=== PATIENT | female | born 1930 | race Caucasian/White ===

== ENCOUNTER → 2017-08-03 | Outpatient (CLI) | payer MEDICARE, OTHER ==
[~2017-08-03] MED LIST: ACET500 PO; CARV3.125 PO; CENTRUM SILVER1 EAC2 PO; CHOL10002 PO; Cephalexin500 MG PO; FISH OIL PO; Fish Oil 10001000 MG; Ibuprofen Ib200 MG PO; LISINOPRIL PO; MULVITMINF PO; NAPR500 PO; PRAVASTATIN PO; Pravachol40 MG PO; TRIHYD253A PO; Zestril40 MG
[2017-08-03 15:26] LABS: BASOPHILS ABSOLUTE AUTO 0.02 K/mm3 (0.00-0.23); BASOPHILS PERCENT AUTO 0 % (0-2); EOSINOPHILS ABSOLUTE AUTO 0.25 K/mm3 (0.00-0.68); EOSINOPHILS PERCENT AUTO 3 % (0-6); Hematocrit 35.6 % (33.0-51.0); Hemoglobin 12.7 g/dL (11.5-16.0); IMMATURE GRAN ABSOLUTE AUTO 0.02 K/mm3 (0.00-0.10); IMMATURE GRAN PERCENT AUTO 0 % (0-1); LYMPHOCYTES ABSOLUTE AUTO 1.76 K/mm3 (0.84-5.20); LYMPHOCYTES PERCENT AUTO 23 % (21-46); MONOCYTES ABSOLUTE AUTO 0.66 K/mm3 (0.16-1.47); MONOCYTES PERCENT AUTO 9 % (4-13); Mean Corpuscular HGB 32.2 pg (26.0-34.0); Mean Corpuscular HGB Conc 35.7 g/dL (31.5-36.5); Mean Corpuscular Volume 90 fL (80-100); Mean Platelet Volume 9.6 fL (9.1-12.4); NEUTROPHILS ABSOLUTE AUTO 4.95 K/mm3 (1.96-9.15); NEUTROPHILS PERCENT AUTO 65 % (41-73); Platelet Count 229 K/mm3 (150-400); RDW Coefficient Variation 12.2 % (11.7-14.2); RDW Standard Deviation 40.1 fL (35.1-46.3); Red Blood Cell Count 3.94 M/mm3 (3.80-5.20); White Blood Cell Count 7.66 K/mm3 (4.00-11.30)
[2017-08-03 15:39] LABS: Albumin, Blood 3.6 g/dL (3.4-5.0); Albumin/Globulin Ratio 1.1 (0.8-1.8); Bilirubin, Total 0.5 mg/dL (0.1-1.0); Bun/Creatinine Ratio 20.8 (12.0-20.0); Calcium, Blood 10.7 mg/dL (8.5-10.1); Creatinine, Blood 0.96 mg/dL (0.40-1.00); Globulin, Blood 3.4 g/dL (2.2-4.0); Potassium, Blood 4.1 mmol/L (3.5-5.5)
== END | disposition home or self-care (01) ==
LOC: LAB EV 15:20
PROVIDERS: Physician Assistant Surgical
DX: R10.13 Epigastric pain (principal)
CPT/HCPCS: 80053; 83690; 85025

== ENCOUNTER → 2018-02-17 | Outpatient (CLI) | payer MEDICARE, OTHER ==
[~2018-02-17] MED LIST changes: -Cephalexin500 MG PO
== END | disposition home or self-care (01) ==
LOC: LAB SHORT 08:18 → PLD 08:18
DX: D22.39 Melanocytic nevi of other parts of face (principal)
CPT/HCPCS: 88305

== ENCOUNTER 2019-05-14 16:15 | Inpatient (IN) | payer MEDICARE, OTHER ==
[~2019-05-14] VITALS: Ht 160 cm; Wt 67.0 kg
[~2019-05-14 16:15] MED LIST changes: -CENTRUM SILVER1 EAC2 PO; +Cephalexin500 MG PO; +Dyazide 37.5-21 EACH PO; -TRIHYD253A PO; -Zestril40 MG; +Zestril40 MG PO
[2019-05-14 17:53] LABS: BASOPHILS ABSOLUTE AUTO 0.02 K/mm3 (0.00-0.23); BASOPHILS PERCENT AUTO 0 % (0-2); EOSINOPHILS ABSOLUTE AUTO 0.23 K/mm3 (0.00-0.68); EOSINOPHILS PERCENT AUTO 2 % (0-6); Hematocrit 35.5 % (33.0-51.0); Hemoglobin 11.6 g/dL (11.5-16.0); IMMATURE GRAN ABSOLUTE AUTO 0.03 K/mm3 (0.00-0.10); IMMATURE GRAN PERCENT AUTO 0 % (0-1); LYMPHOCYTES ABSOLUTE AUTO 1.67 K/mm3 (0.84-5.20); LYMPHOCYTES PERCENT AUTO 16 % (21-46); MONOCYTES ABSOLUTE AUTO 0.69 K/mm3 (0.16-1.47); MONOCYTES PERCENT AUTO 7 % (4-13); Mean Corpuscular HGB Conc 32.7 g/dL (31.5-36.5); Mean Corpuscular Volume 95 fL (80-100); Mean Platelet Volume 9.6 fL (9.1-12.4); NEUTROPHILS ABSOLUTE AUTO 7.95 K/mm3 (1.96-9.15); NEUTROPHILS PERCENT AUTO 75 % (41-73); Platelet Count 270 K/mm3 (150-400); RDW Coefficient Variation 13.6 % (11.7-14.2); RDW Standard Deviation 47.1 fL (35.1-46.3); Red Blood Cell Count 3.74 M/mm3 (3.80-5.20); White Blood Cell Count 10.59 K/mm3 (4.00-11.30)
[2019-05-14 18:13] LABS: Alanine Aminotransfer (ALT/SGP 38 U/L (12-78); Albumin, Blood 3.5 g/dL (3.4-5.0); Albumin/Globulin Ratio 0.9 (0.8-1.8); Alk Phos 74 U/L (50-136); Anion Gap 8 mmol/L (6-16); Aspartate Aminotrans (AST/SGOT 21 U/L (12-37); Bilirubin, Total 0.4 mg/dL (0.1-1.0); Blood Urea Nitrogen 31 mg/dL (8-24); Bun/Creatinine Ratio 34.2 (12.0-20.0); CO2, Blood 21 mmol/L (21-32); Calcium, Blood 9.6 mg/dL (8.5-10.1); Chloride, Blood 106 mmol/L (98-108); Creatinine, Blood 0.91 mg/dL (0.40-1.00); Globulin, Blood 3.8 g/dL (2.2-4.0); Glomerular Filtration Rate >60 (60-); Glucose, Blood 120 mg/dL (70-99); Potassium, Blood 4.5 mmol/L (3.5-5.5); Sodium, Blood 135 mmol/L (136-145); Total Protein, Blood 7.3 g/dL (6.4-8.2)
[2019-05-14] MEDS ORDERED: THERA1 EACH PO (18:36)
[2019-05-14] MEDS ORDERED: GLUCOSAMINE-CHONDROI PO (18:38)
[2019-05-14 19:27] LABS: International Normalized Ratio 0.98; Prothrombin Time Results 10.4 Sec (9.7-11.5)
--- NOTE | 2019-05-15 07:21 | NUR ---
SHIFT SUMMARY HAS RESTED WELL SINCE ADMISSION. PAIN MANAGED WITH PRN PO PAIN MEDS. STATES THAT SHE IS LOOOKING FORWARD TO GETTING BACK HOME SOON POSSIBLE SINCE SHE IS HOSTING SHIRLEY THIS YEAR. SAFETY MEASURES IN PLACE. WILL GIVE HAND OFF TO ONCOMING SHIFT USING SBAR.
--- NOTE | 2019-05-15 11:40 | NUR ---
DR. SOTO IN TO SEE PT, PLAN IS FOR SURGERY TODAY, MID-AFTERNOON.
--- NOTE | 2019-05-15 15:57 | NUR ---
PT TO OR AT ABOUT 1500
--- NOTE | 2019-05-15 16:57 | NUR ---
Lungs clear T/O to Auscultation. History, Chart, Medications and Allergies reviewed before start of procedure.Patient confirms NPO status and agrees with scheduled surgery. THE PATIENT WAS BROUGHT DOWN FROM THE FLOOR FOR HER HIP REVISION.
[2019-05-16 03:46] LABS: BASOPHILS ABSOLUTE AUTO 0.01 K/mm3 (0.00-0.23); BASOPHILS PERCENT AUTO 0 % (0-2); EOSINOPHILS PERCENT AUTO 0 % (0-6); Hematocrit 26.6 % (33.0-51.0); Hemoglobin 8.8 g/dL (11.5-16.0); IMMATURE GRAN ABSOLUTE AUTO 0.02 K/mm3 (0.00-0.10); IMMATURE GRAN PERCENT AUTO 0 % (0-1); LYMPHOCYTES ABSOLUTE AUTO 1.04 K/mm3 (0.84-5.20); LYMPHOCYTES PERCENT AUTO 9 % (21-46); MONOCYTES ABSOLUTE AUTO 0.51 K/mm3 (0.16-1.47); MONOCYTES PERCENT AUTO 5 % (4-13); Mean Corpuscular HGB 31.2 pg (26.0-34.0); Mean Corpuscular HGB Conc 33.1 g/dL (31.5-36.5); Mean Corpuscular Volume 94 fL (80-100); Mean Platelet Volume 9.9 fL (9.1-12.4); NEUTROPHILS ABSOLUTE AUTO 9.68 K/mm3 (1.96-9.15); NEUTROPHILS PERCENT AUTO 86 % (41-73); Platelet Count 216 K/mm3 (150-400); RDW Coefficient Variation 13.9 % (11.7-14.2); RDW Standard Deviation 47.8 fL (35.1-46.3); Red Blood Cell Count 2.82 M/mm3 (3.80-5.20); White Blood Cell Count 11.26 K/mm3 (4.00-11.30)
--- NOTE | 2019-05-16 06:33 | NUR ---
SHIFT SUMMARY PT POD#1 LEFT HIP ORIF. AAOX4. DISCOMFORT CONTROLLED WITH 1 ULTRAM THIS AM, NO NAUSEA/EMESIS. LEFT HIP AQUACEL C/D/I. PPP, DENIES N/T BLE, MOVES TOES WELL. PT UP TO RESTROOM THIS SHIFT, TOLERATED WELL 1 PERSON MODERATE ASSIST WITH FWW. GOOD PO INTAKE + OUTPUT. PT RESTING WELL THIS AM. DR AMANDA IN ROOM. CALL LIGHT IN REACH.
--- NOTE | 2019-05-16 14:28 | NUR ---
DR SOTO HERE TO SEE PT, FAMILY PRESENT.
--- NOTE | 2019-05-16 16:59 | NUR ---
SHIFT SUMMARY PT EATING AND DRINKING. PT VOIDING, PASSING GAS. PT BEEN UP TO CHAIR TODAY. PT WORKED WITH THERAPY. FAMILY IN/OUT OF ROOM. PT BEEN ASSISTED WITH ADL'S PRN. PT USING [employer] APPR.
--- NOTE | 2019-05-17 04:03 | NUR ---
SHIFT SUMMARY PT POD#2. AAOX4. DISCOMFORT MINIMIZED WITH ULTRAM X1 THIS SHIFT. NO NAUSEA/EMESIS. AQUACEL TO LEFT HIP C/D/I. PPP, DENIES ACUTE CHANGE IN N/T, MOVES TOES WELL BLE. PT UP TO RESTROOM 1 PERSON MINIMAL ASSIST WITH FWW, TOLERATES WEIGHTBEARING STATUS WELL. PT AWOKE THIS AM WITH ABD DISCOMFORT, MINIMIZED WITH CRACKERS. GOOD PO INTAKE + OUTPUT. PT UP TO RESTROOM + BACK TO BED AT THIS TIME, NADN, WITH CALL LIGHT IN REACH. REPORT TO JAY RUBIN TO ASSUME CARE.
--- NOTE | 2019-05-17 06:04 | NUR ---
DR ANGLIN NOTIFIED OF GI PAINS IN MID EPIGASTRIC AREA. MAALOX ORDERED AND GIVEN. AWAITING RESULTS.
[2019-05-17 07:18] LABS: BASOPHILS ABSOLUTE AUTO 0.01 K/mm3 (0.00-0.23); BASOPHILS PERCENT AUTO 0 % (0-2); EOSINOPHILS ABSOLUTE AUTO 0.01 K/mm3 (0.00-0.68); EOSINOPHILS PERCENT AUTO 0 % (0-6); Hematocrit 27.4 % (33.0-51.0); Hemoglobin 8.9 g/dL (11.5-16.0); IMMATURE GRAN ABSOLUTE AUTO 0.02 K/mm3 (0.00-0.10); IMMATURE GRAN PERCENT AUTO 0 % (0-1); LYMPHOCYTES ABSOLUTE AUTO 1.15 K/mm3 (0.84-5.20); LYMPHOCYTES PERCENT AUTO 13 % (21-46); MONOCYTES ABSOLUTE AUTO 0.28 K/mm3 (0.16-1.47); MONOCYTES PERCENT AUTO 3 % (4-13); Mean Corpuscular HGB 30.9 pg (26.0-34.0); Mean Corpuscular HGB Conc 32.5 g/dL (31.5-36.5); Mean Corpuscular Volume 95 fL (80-100); Mean Platelet Volume 9.8 fL (9.1-12.4); NEUTROPHILS ABSOLUTE AUTO 7.67 K/mm3 (1.96-9.15); NEUTROPHILS PERCENT AUTO 84 % (41-73); Platelet Count 236 K/mm3 (150-400); RDW Coefficient Variation 14.1 % (11.7-14.2); RDW Standard Deviation 48.8 fL (35.1-46.3); Red Blood Cell Count 2.88 M/mm3 (3.80-5.20); White Blood Cell Count 9.14 K/mm3 (4.00-11.30)
[2019-05-17 07:37] LABS: Albumin, Blood 2.8 g/dL (3.4-5.0); Albumin/Globulin Ratio 0.9 (0.8-1.8); Bilirubin, Total 0.4 mg/dL (0.1-1.0); Bun/Creatinine Ratio 37.3 (12.0-20.0); Calcium, Blood 8.9 mg/dL (8.5-10.1); Creatinine, Blood 1.1 mg/dL (0.40-1.00); Globulin, Blood 3.2 g/dL (2.2-4.0); Potassium, Blood 4.6 mmol/L (3.5-5.5)
--- NOTE | 2019-05-17 08:11 | NUR ---
PT RECENTLY TO IMAGING BY CART.
--- NOTE | 2019-05-17 11:19 | NUR ---
DR SOTO HERE TO SEE PT, DISCUSSED PT'S STATUS.
--- NOTE | 2019-05-17 12:35 | NUR ---
DR AMANDA CALLED FOR UPDATE, DISCUSSED PT'S STATUS.
--- NOTE | 2019-05-17 12:47 | NUR ---
PT SLEEPING, RESP E/U.
--- NOTE | 2019-05-17 13:06 | NUR ---
IVF INCREASED PER ORDER.
--- NOTE | 2019-05-17 14:26 | NUR ---
PT REPORTS CONT TO BE TENDER IN ABD, BUT THAT SHE FEELS MUCH BETTER AND HAS NO NAUSEA AT THIS TIME.
--- NOTE | 2019-05-17 15:54 | NUR ---
PT TO IMAGING RECENTLY.
--- NOTE | 2019-05-17 17:49 | NUR ---
DR AMANDA BEEN TO SEE PT. DR AMANDA DISCUSSED PT'S STATUS WITH DR LOU. DR AMANDA PLACED ORDERS. NGT TO L NARES WITH ASSIST FROM MANAGER SOURCING. PT TOLERATED WELL. IMAGING ORDERED TO CONFIRM PLACEMENT.
--- NOTE | 2019-05-17 18:48 | NUR ---
NGT REPORTED TO BE IN CORRECT PLACEMENT, NGT TO LIS IN PLACE.
--- NOTE | 2019-05-17 19:33 | NUR ---
SHIFT SUMMARY PT BEEN NPO. PT BEEN ASSISTED WITH ADL'S PRN. PT WAS UP TO CHAIR THIS AM. PT REPORTS MORE COMFORTABLE IN BED. PT BEEN MED PRN FOR PAIN AND NAUSEA. DR AMANDA BEEN IN A COUPLE TIMES TO SEE PT AND ALSO CHECKING PT'S STATUS BY PHONE. DR AMANDA SPOKE WITH DR LOU REGARDING PT THIS EVENING. PT HAS IVF IN ONE IV AND THE PROTONIX DRIP IN ANOTHER IV. HS RN BEEN GIVEN BEDSIDE REPORT INCLUDING Q2 HOUR VS.
[2019-05-18 05:36] LABS: Hematocrit 25.5 % (33.0-51.0); Hemoglobin 8.7 g/dL (11.5-16.0); Mean Corpuscular HGB 31.3 pg (26.0-34.0); Mean Corpuscular HGB Conc 34.1 g/dL (31.5-36.5); Platelet Count 209 K/mm3 (150-400); RDW Coefficient Variation 14.3 % (11.7-14.2); RDW Standard Deviation 48.3 fL (35.1-46.3); Red Blood Cell Count 2.78 M/mm3 (3.80-5.20); White Blood Cell Count 14.65 K/mm3 (4.00-11.30)
[2019-05-18 05:38] LABS: Mean Corpuscular Volume 92 fL (80-100)
[2019-05-18 05:53] LABS: Bun/Creatinine Ratio 31.5 (12.0-20.0); Calcium, Blood 8.3 mg/dL (8.5-10.1); Creatinine, Blood 1.3 mg/dL (0.40-1.00)
[2019-05-18 05:54] LABS: BAND PERCENT MAN 22 % (0-8); BASOPHILS PERCENT MAN 0 % (0-2); EOSINOPHILS PERCENT MAN 0 % (0-6); LYMPHOCYTES ABSOLUTE MAN 1.75 K/mm3 (0.84-5.20); LYMPHOCYTES PERCENT MAN 12 % (21-46); METAMYELOCYTE ABSOLUTE MAN 0.29 K/mm3 (0.00-0.00); METAMYELOCYTE PERCENT MAN 2 % (0-0); MONOCYTES ABSOLUTE MAN 1.02 K/mm3 (0.16-1.47); MONOCYTES PERCENT MAN 7 % (4-13); NEUTROPHILS ABSOLUTE MAN 11.57 K/mm3 (1.96-9.15); SEG NEUTROPHILS PERCENT MAN 57 % (41-73); TOTAL CELLS COUNTED 100
--- NOTE | 2019-05-18 06:29 | NUR ---
SHIFT SUMMARY PT RESTED WELL T/O NIGHT. AAOX4. NPO. POD#2 LEFT HIP REPAIR. DISCOMFORT CONTROLLED WITH 25mcg FENTANYL X1 THIS SHIFT. NO NAUSEA/EMESIS. AQUACEL TO LEFT HIP C/D/I. NGT TO LIS, WITH 100cc LIGHT GREEN OUT THIS SHIFT FOR A TOTAL OF 400 OUT SINCE INSERTION. BOWEL TONES HYPOACTIVE BUT NOTABLY INCREASED THIS AM FROM EVENING ASSESSMENT. IVF + PROTONIX GTT INFUSING PER ORDERS. DR AMANDA AT BEDSIDE THIS AM. PT NOW RESTING IN BED WITH CALL LIGHT IN REACH.
--- NOTE | 2019-05-18 10:35 | NUR ---
05/18/19 1035 Keena Herrera VERIFICATIONS: EDIT CHART.
--- NOTE | 2019-05-18 16:46 | NUR ---
Palliative care note: Attempted to visit pt this afternoon. She did not wake to voice. She is sleeping soundly in reclined chair. NG tube in. Chart reviewed in detail. Will try again tomorrow and offer to help pt complete an AD if she would like to.
--- NOTE | 2019-05-18 19:34 | NUR ---
SHIFT SUMMARY PT HAS DENIED PAIN THIS SHIFT. SHE IS A 1ASSIST WITH TRANSFERS. NG TUBE REMAINS IN PLACE. VSS. REPORT GIVEN TO KIMMIE THOMPSON.
--- NOTE | 2019-05-19 04:21 | NUR ---
SHIFT SUMMARY POD 4 LEFT FEMUR FX REPAIR. PT AA0X4, VSS. DRESSING CDI. PT DECLINES POLAR MARI. PT DENIES PAIN AND NAUSEA. PT HAS BEEN UP AND TRANSFERS [place] [facility] [place] [facility]. CONT OF BLADDER, HAS BEEN VOIDING. NO BM. NG TUBE IN PLACE PATENT AND DRAINING. PT HAS BEEN RESTING IN BED DURING SHIFT. FLUIDS RUNNING AT 125. DENIES FURTHER NEEDS AT THIS TIME.
[2019-05-19 06:12] LABS: BASOPHILS ABSOLUTE AUTO 0.01 K/mm3 (0.00-0.23); BASOPHILS PERCENT AUTO 0 % (0-2); EOSINOPHILS ABSOLUTE AUTO 0.08 K/mm3 (0.00-0.68); EOSINOPHILS PERCENT AUTO 1 % (0-6); Hematocrit 19.2 % (33.0-51.0); Hemoglobin 6.3 g/dL (11.5-16.0); IMMATURE GRAN ABSOLUTE AUTO 0.06 K/mm3 (0.00-0.10); IMMATURE GRAN PERCENT AUTO 1 % (0-1); LYMPHOCYTES ABSOLUTE AUTO 0.92 K/mm3 (0.84-5.20); LYMPHOCYTES PERCENT AUTO 9 % (21-46); MONOCYTES ABSOLUTE AUTO 0.79 K/mm3 (0.16-1.47); MONOCYTES PERCENT AUTO 7 % (4-13); Mean Corpuscular HGB 31.3 pg (26.0-34.0); Mean Corpuscular HGB Conc 32.8 g/dL (31.5-36.5); NEUTROPHILS ABSOLUTE AUTO 8.84 K/mm3 (1.96-9.15); NEUTROPHILS PERCENT AUTO 83 % (41-73); Platelet Count 172 K/mm3 (150-400); RDW Coefficient Variation 14.6 % (11.7-14.2); RDW Standard Deviation 50.5 fL (35.1-46.3); Red Blood Cell Count 2.01 M/mm3 (3.80-5.20)
[2019-05-19 06:15] LABS: Mean Corpuscular Volume 96 fL (80-100)
[2019-05-19 06:31] LABS: Bun/Creatinine Ratio 35.4 (12.0-20.0); Calcium, Blood 8.3 mg/dL (8.5-10.1); Creatinine, Blood 0.99 mg/dL (0.40-1.00); Potassium, Blood 4.1 mmol/L (3.5-5.5)
--- NOTE | 2019-05-19 06:34 | NUR ---
DR. AMANDA AWARE OF HGB 6.3. ORDERS TO TRANSFUSE 2 UNITS PRBC.
--- NOTE | 2019-05-19 10:13 | NUR ---
FIRST UNIT OF BLOOD STARTED. LUNG SOUNDS ARE CLEAR. PT APPEARS TO BE TOLERATING WELL.
--- NOTE | 2019-05-19 18:25 | NUR ---
SHIFT SUMMARY PT IS IN THE PROCESS OF RECEIVING HER SECOND UNIT OF BLOOD TODAY. SHE IS TOLERATING BLOOD TRANFUSION WELL. NG TUBE REMAINS IN PLACE; PER DR. CASTELLON THE NG TUBE WILL REMAIN UNTIL SATURDAY WHEN PT WILL HAVE FOLLOW UP IMAGING. PT IS A 1 ASSIST WITH TRANFERS. SHE HAS BEEN LIMITED WITH MOVEMENT R/T NG TUBE AND IV LINES TODAY. SHE HAS BEEN ABLE TO SIT UP TO THE CHAIR. PAIN IS MINIMAL. PT FOLLOWS WEIGHT BEARING PRECAUTIONS WELL AND USES HER WALKER APPROPRIATELY. PT HAS DENIED ABD PAIN T/O THE DAY. VSS. WILL MONITOR UNTIL REPORT TO ONCOMING RN.
--- NOTE | 2019-05-20 04:05 | NUR ---
SHIFT SUMMARY POD 5 LEFT FEMUR FX REPAIR PT AOOX4 VSS. PT STATES FEELING BETTER SINCE RECEIVING 2 UNITS OF BLOOD. DENIES SOB. PT UP TO BSC WITH MINIMAL ASSIST. TOLERATES WELL. PPN INFUSING DURING SHIFT. AQUACEL DRESSING CDI. PATIENT DENIES PAIN DURING SHIFT. NG TUBE DRAINING GREEN LIQUID AT THIS TIME. PATIENT CALLING APPROPRIATLY. VOIDING DURING SHIFT.
[2019-05-20 04:18] LABS: BASOPHILS ABSOLUTE AUTO 0.01 K/mm3 (0.00-0.23); BASOPHILS PERCENT AUTO 0 % (0-2); EOSINOPHILS ABSOLUTE AUTO 0.22 K/mm3 (0.00-0.68); EOSINOPHILS PERCENT AUTO 2 % (0-6); Hematocrit 26.3 % (33.0-51.0); Hemoglobin 8.9 g/dL (11.5-16.0); IMMATURE GRAN ABSOLUTE AUTO 0.04 K/mm3 (0.00-0.10); IMMATURE GRAN PERCENT AUTO 0 % (0-1); LYMPHOCYTES ABSOLUTE AUTO 1.08 K/mm3 (0.84-5.20); LYMPHOCYTES PERCENT AUTO 11 % (21-46); MONOCYTES ABSOLUTE AUTO 0.63 K/mm3 (0.16-1.47); MONOCYTES PERCENT AUTO 6 % (4-13); Mean Corpuscular HGB Conc 33.8 g/dL (31.5-36.5); Mean Corpuscular Volume 92 fL (80-100); Mean Platelet Volume 9.8 fL (9.1-12.4); NEUTROPHILS ABSOLUTE AUTO 8.34 K/mm3 (1.96-9.15); NEUTROPHILS PERCENT AUTO 81 % (41-73); Platelet Count 180 K/mm3 (150-400); RDW Coefficient Variation 16.1 % (11.7-14.2); RDW Standard Deviation 54.3 fL (35.1-46.3); Red Blood Cell Count 2.87 M/mm3 (3.80-5.20); White Blood Cell Count 10.32 K/mm3 (4.00-11.30)
[2019-05-20 04:35] LABS: Magnesium, Blood 1.9 mg/dL (1.6-2.4); Phosphorus, Blood 2.5 mg/dL (2.5-4.9); Triglycerides 85 mg/dL (30-160)
--- NOTE | 2019-05-20 05:45 | NUR ---
IV RECEIVING PROTONIX INFILTRATED. STOPPED IV INFUSION AND WILL ATTEMPT TO RESTART IV. PATIENT CURRENTLT UP TO BSC. DENIES ANY PAIN OR DISCOMFORT AT THIS TIME.
--- NOTE | 2019-05-20 06:31 | NUR ---
IV STARTED IN LEFT UPPER ARM. PROTONIX DRIP RESTARTED. PT DENIES PAIN OR DISCOMFORT AT THE SITE.
--- NOTE | 2019-05-20 16:26 | NUR ---
SHIFT SUMMARY NO ACUTE CHANGES THIS SHIFT. NGT TO LIS PRODUCING LESS GREEN LIQ THAN PREVIOUS SHIFT. PT STILL DENIES PASSING GAS, BUT REPORTS FEELING "GAS MOVEMENT" IN ABD. UP TO CHAIR WITH 1 MINIMAL ASSIST USING WALKER. PT DENIES PAIN. AQUACEL DRESSING CHANGED TO HIP FOR MODERATE SANGUINOUS DRAINAGE. PPN INFUSING PER ORDERS. PLAN IS FOR REPEAT IMAGING TOMORROW TO DETERMINE ULCER STATUS. PT USES CALL LIGHT APPROPRIATELY.
[2019-05-21 04:51] LABS: Magnesium, Blood 1.6 mg/dL (1.6-2.4); Phosphorus, Blood 3.2 mg/dL (2.5-4.9)
--- NOTE | 2019-05-21 05:36 | NUR ---
SHIFT SUMMARY PT RESTED WELL T/O NIGHT. AAOX4. POD#6 LEFT HIP SURGERY. DISCOMFORT AT TOLERABLE LEVEL T/O NIGHT. NO NAUSEA/EMESIS. DRESSING TO LEFT HIP CHANGED X1 FOR INCREASED DRAINAGE POST AMBULATION TO BSC. NGT TO LIS, 300cc LIGHT GREEN OUT. PT DENIES ABD DISCOMFORT T/O NIGHT. LARGE FORMED BM YESTARDAY EVENING, UNABLE TO COLLECT STOOL STAMPLE DUE TO CONTAMINATION. PPN + ABX INFUSING PER ORDERS. PT RESTING WELL AT THIS TIME, NADN, WITH CALL LIGHT IN REACH.
--- NOTE | 2019-05-21 09:00 | NUR ---
PATIENT TO IMAGING AT THIS TIME. DENIES PAIN, NAUSEA, WANDA.
--- NOTE | 2019-05-21 14:48 | NUR ---
SPOKE WITH DR AMANDA VIA TELEPHONE RE: STOOL + H. PYLORI. NEW ORDER FOR BARTOLO REC'D. DR PAREKH ENTERED CL DIET ORDER. WILL CLAMP NG UNTIL HE ROUNDS.
--- NOTE | 2019-05-21 16:14 | NUR ---
NG CLAMPED. PATIENT TOLERATED JELLO. ORAL ABX ADMIN. UP TO BSC, VOIDED AND AND MED UNFORMED BM. NO C/O AT THIS TIME.
--- NOTE | 2019-05-21 18:30 | NUR ---
SHIFT SUMMARY DR AMANDA IN TO SEE AT THIS TIME - HE WILL CONTACT DR PAREKH RE: NG TUBE. (TUBE IS CLAMPED PER DR PAREKH'S CL DIET ORDER.) PATIENT TOLERATING PO FLUIDS W/O C/O NAUSEA OR PAIN. PPN INFUSING PER ORDER. PATIENT PASSED MULTIPLE BM'S TODAY. VOIDING WELL. VSS. HIP DRESSING D&I. UP WITH FWW AND SBA, MOVING WELL.
[2019-05-22 05:43] LABS: Magnesium, Blood 1.5 mg/dL (1.6-2.4); Phosphorus, Blood 3.6 mg/dL (2.5-4.9)
--- NOTE | 2019-05-22 06:40 | NUR ---
SHIFT SUMMARY: KYAW CASTELLON IS A&OX4. SHE IS TOLERATING CLEAR LIQUID DIET WELL, DR. AMANDA ADVANCED HER TO FULL LIQUID DIET TODAY. THE AQUACELL TO HER LEFT HIP WAS CHANGED THIS MORNING DUE TO SS DRAINAGE. EDMUNDO WERE INTACT, INCISION WELL APPROXIMATED, NO INDURATION OR PURULENT DRAINAGE. NG TUBE WAS PULLED EARLY THIS MORNING. PPN INFUSING. PAS IN PLACE. SHE IS URINATING AND HAVING BOWEL MOVEMENTS WITHOUT DIFFICULTY. SHE IS A ONE PERSON ASSIST TO THE BEDSIDE COMMODE. SHE IS LYING COMFORTABLY IN BED WITH THE CALL LIGHT IN REACH.
--- NOTE | 2019-05-22 18:30 | NUR ---
SHIFT SUMMARY. PATIENT W/O C/O THIS SHIFT. TOLERATING FL DIET. REG DIET TRAY TO BE DELIVERED. L HIP DRESSING CHANGED, SITE CLEAR. UP WITH FWW, GB, SBA. VOIDING WELL. HAVING BM'S. VSS. POSSIBLE D/C TO SNF TOMORROW.
--- NOTE | 2019-05-23 06:51 | NUR ---
SUMMARY PT SLEPT OFF AND ON TONIGHT.MINIMAL DISCOMFORT REPORTED.PT HAD FALL WITHOUT COMPLAINTS OF PAIN IN ATTENDANCE OF CAR USHER. SEE POST FALL HUDDLE CHARTING PER CURING MACHINE OPERATOR.
--- NOTE | 2019-05-23 11:23 | NUR ---
physical therapy working with pt
--- NOTE | 2019-05-23 18:29 | NUR ---
shift summary: vss, no acute changes, pt remained a/o x 4, pleasant/cooperative. pt denies pain, up to chair t/o the day. pt worked with PT/OT today. pt tolerated diet with no n/v. surgical dressings remain c/d/i. awaiting facility discharge to SNF
--- NOTE | 2019-05-24 06:49 | NUR ---
SUMMARY PT SLEPT QUIETLY TONIGHT.
--- NOTE | 2019-05-24 18:54 | NUR ---
SHIFT SUMMARY PAIN MINIMAL THIS SHIFT. PT IS A 1 PERSON ASSIST. NO CHANGES TO REPORT. PLAN FOR SNF TOMORROW. VSS. WILL MONITOR UNTIL REPORT TO ONCOMING RN.
--- NOTE | 2019-05-25 07:49 | NUR ---
SUMMARY UNABLE TO WEAN O2 WHILE SLEEPING. NO OTHER CHANGES.
--- NOTE | 2019-05-25 07:54 | NUR ---
SUMMARY PT PLANNED FOR DISCHARGE TO SNF.
--- NOTE | 2019-05-25 09:20 | NUR ---
THERAPY BEEN WORKING WITH PT RECENTLY.
--- NOTE | 2019-05-25 16:01 | NUR ---
DISCHARGE/PNEUM/FLU SHOT PT EATING AND DRINKING, VOIDING, HAVING BM'S. PT CONT TO REPORT STOMACH NOT BOTHERING HER. PT CONT TO DENY PAIN AT HIP. PT HAS NO IV'S IN PLACE. PT TO [facility] WITH [facility]SPORT, REPORT GIVEN TO [facility] AT [facility] PT REPORTS HAVING HAD FLU SHOT THIS YEAR IN FEBRUARY AND REPORTS HAVING HAD HER PNEUM SHOT IN Apr. TAR AND AMMONIA PUMP OPERATOR ASSISTED WITH PAPERWORK. PT SENT WITH PAPERWORK AND BELONGINGS. PT REPORTS FAMILY AWARE.
== END 2019-05-25 15:58 | DRG 480 ==
LOC: ER 16:15 → SURS 18:31
PROVIDERS: Emergency Medicine; Internal Medicine; Nurse Practitioner Acute Care; Orthopaedic Surgery; ADMIT Internal Medicine
PROC: 30233N1 Transfusion of Nonautologous Red Blood Cells into Peripheral Vein, Percutaneous Approach (ICD-10-PCS; 2019-05-15)
PROC: 0QS704Z Reposition Left Upper Femur with Internal Fixation Device, Open Approach (ICD-10-PCS; principal; 2019-05-15 16:00)
DX: M97.8XXA Periprosthetic fracture around other internal prosthetic joint, initial encounter (principal); K26.5 Chronic or unspecified duodenal ulcer with perforation; N17.9 Acute kidney failure, unspecified; D62 Acute posthemorrhagic anemia; Z85.3 Personal history of malignant neoplasm of breast; Z87.891 Personal history of nicotine dependence; E87.5 Hyperkalemia; E78.5 Hyperlipidemia, unspecified; I10 Essential (primary) hypertension; R00.0 Tachycardia, unspecified; D72.829 Elevated white blood cell count, unspecified; B96.81 Helicobacter pylori [H. pylori] as the cause of diseases classified elsewhere
CPT/HCPCS: 36415; 36430; 71045; 72170; 73502; 73700; 74022; 74177; 74240; 80048; 80053; 82150; 82947; 83690; 83735; 84100; 84478; 85025; 85610; 85730; 86850; 86870; 86900; 86901; 86922; 87338; 93005; 93010; 97110; 97116; 97161; 97530; 99285-25; A9270; A9270-GY; C1713; C9113; J0610; J0690; J1100; J1650; J1885; J2370; J2405; J2543; J2704; J3010; J3475; J3480; J7042; J7050; J7120; J7131; P9016; Q9967

== ENCOUNTER → 2019-08-05 | Outpatient (CLI) | payer MEDICARE, OTHER ==
[~2019-08-05] MED LIST changes: +GLUCOSAMINE-CHONDROI PO; +THERA1 EACH PO
== END | disposition home or self-care (01) ==
LOC: LAB 16:06 → LAB SHORT 16:06
DX: L08.9 Local infection of the skin and subcutaneous tissue, unspecified (principal)
CPT/HCPCS: 87070; 87077; 87147; 87186; 87205